=== PATIENT | male | born 1945 | race Caucasian/White ===

== ENCOUNTER 2018-07-28 11:38 | Day surgery (SDC) | payer MEDICARE, OTHER ==
[2018-07-28] MEDS ORDERED: LIDOCAINE 1% (MDV) 20 ML INJ (12:37)
[2018-07-28] MEDS: SOD CHLORIDE 0.9% 1,000 ML IV (12:51)
[2018-07-28] MEDS ORDERED: PROPOFOL 40 ML (13:27)
[2018-07-28] MEDS ORDERED: MIDAZOLAM 1 MG/ML 2 ML INJ (13:27)
[2018-07-28] MEDS ORDERED: LIDOCAINE 2% (SDV) 5 ML INJ (13:27)
[2018-07-28] MEDS ORDERED: FENTAnyl 50 MCG/ML VIAL (13:27)
[2018-07-28] MEDS ORDERED: METOCLOPRAMIDE 10 MG INJ IV (14:30)
[2018-07-28] MEDS ORDERED: MEPERIDINE 25 MG INJ IV (14:30)
[2018-07-28] MEDS ORDERED: ONDANSETRON 4 MG INJ IV (14:30)
[2018-07-28] MEDS ORDERED: FENTAnyl 50 MCG/ML VIAL IV (14:30)
[2018-07-28] MEDS ORDERED: DIPHENHYDRAMINE 50 MG INJ IV (14:30)
[2018-07-28] MEDS ORDERED: HYDROmorphONE 1 MG/5 ML IV SYRINGE IV (14:30)
== END 2018-07-28 16:40 | disposition home or self-care (01) ==
LOC: RAD 11:38 → SDS 11:38 → RAD 16:40
DX: D69.6 Thrombocytopenia, unspecified (principal); I10 Essential (primary) hypertension; E78.5 Hyperlipidemia, unspecified
CPT/HCPCS: 38221; 77012; 88305; 88313